=== PATIENT | male | born 1980 | race Caucasian/White ===

== ENCOUNTER 2017-10-09 12:27 | Emergency (ER) | payer SELFPAY ==
[~2017-10-09] VITALS: Ht 175.3 cm; Wt 84.4 kg
[2017-10-09 12:46] VITALS: Ht 175.3 cm; Wt 84.4 kg
[2017-10-09 13:31] VITALS: BP 130/70
== END 2017-10-09 13:31 | disposition home or self-care (01) ==
LOC: ED 12:27
DX: S86.912A Strain of unspecified muscle(s) and tendon(s) at lower leg level, left leg, initial encounter (principal); X58.XXXA Exposure to other specified factors, initial encounter; Y92.89 Other specified places as the place of occurrence of the external cause; Y93.89 Activity, other specified; Y99.8 Other external cause status

== ENCOUNTER 2018-10-19 07:18 | Emergency (ER) | payer MEDICAID ==
[~2018-10-19] VITALS: Ht 175.3 cm; Wt 87.1 kg
[2018-10-19 07:33] VITALS: Ht 175.3 cm; Wt 87.1 kg
[2018-10-19 08:20] LABS: microscopic required? NO
[2018-10-19 08:43] LABS: CALCIUM 8.5 mg/dL (8.5-10.1); CARBON DIOXIDE 20.4 mmol/L (21-32); CHLORIDE SERUM 103 mmol/L (98-107); CREATININE SERUM 1.1 mg/dL (0.7-1.3); GFR1 > 60 mL/min; GLUCOSE SERUM 122 mg/dL (74-106); POTASSIUM SERUM 4.4 mmol/L (3.5-5.1); SODIUM SERUM 139 mmol/L (136-145)
[2018-10-19 08:47] LABS: ALBUMIN 3.4 g/dL (3.4-5.0); ALKALINE PHOSPHATASE 129 U/L (46-116); ALT/SGPT 166 U/L (16-63); AMYLASE 56 U/L (25-115); AST/SGOT 130 U/L (15-37); LIPASE 207 IU/L (73-393); TOTAL PROTEIN, SERUM 7.8 g/dL (6.4-8.2)
[2018-10-19 09:01] LABS: BASOPHIL % 0.6 % (0-2); PLATELET COUNT 254 x10^3mcL (130-400)
[2018-10-19 09:03] LABS: UA SPECIFIC GRAVITY >=1.030 (1.005-1.035); urine erythrocyte NEGATIVE (NEGATIVE)
[2018-10-19 09:42] LABS: AMPHETAMINE QUAL UR NONE DETECTED (See below)
[2018-10-19 12:28] VITALS: BP 138/92
== END 2018-10-19 12:28 | disposition home or self-care (01) ==
LOC: ED 07:18
PROVIDERS: Specialist
DX: R10.13 Epigastric pain (principal); F41.9 Anxiety disorder, unspecified; F10.20 Alcohol dependence, uncomplicated; F51.04 Psychophysiologic insomnia
CPT/HCPCS: 36415; G0480; J1885